=== PATIENT | male | born 1950 ===

== ENCOUNTER 2020-10-02 11:21 | Day surgery (SDC) | payer OTHER ==
[2020-10-03] MEDS ORDERED: ATOR10 PO (14:17)
[2020-10-03] MEDS ORDERED: AMLO5 PO (14:17)
[2020-10-03] MEDS ORDERED: Lisinopril-Hct1 EAC4 PO (14:17)
[2020-10-03] MEDS ORDERED: ASPIR 8181 M1 PO (14:18)
[2020-10-03] MEDS ORDERED: METF500 PO (14:18)
== END 2020-10-02 23:14 | disposition home or self-care (01) ==
LOC: ATC 11:21
DX: U07.1 COVID-19 (principal); J12.82 Pneumonia due to coronavirus disease 2019; E11.9 Type 2 diabetes mellitus without complications
CPT/HCPCS: 96365; Q0243

== ENCOUNTER 2020-10-03 10:09 | Inpatient (IN) | payer OTHER, MEDICARE ==
[~2020-10-03] VITALS: Ht 177.8 cm; Wt 93.7 kg
[2020-10-03 10:56] LABS: BASOPHILS ABSOLUTE AUTO 0.02 K/mm3 (0.00-0.23); BASOPHILS PERCENT AUTO 0 % (0-2); EOSINOPHILS PERCENT AUTO 0 % (0-6); Hematocrit 39.9 % (37.0-53.0); Hemoglobin 13.4 g/dL (13.5-17.5); IMMATURE GRAN PERCENT AUTO 1 % (0-1); LYMPHOCYTES ABSOLUTE AUTO 0.65 K/mm3 (0.84-5.20); LYMPHOCYTES PERCENT AUTO 5 % (21-46); MONOCYTES ABSOLUTE AUTO 0.88 K/mm3 (0.16-1.47); MONOCYTES PERCENT AUTO 6 % (4-13); Mean Corpuscular HGB 28.9 pg (26.0-34.0); Mean Corpuscular HGB Conc 33.6 g/dL (31.5-36.5); Mean Corpuscular Volume 86 fL (80-100); Mean Platelet Volume 9.3 fL (9.1-12.4); NEUTROPHILS ABSOLUTE AUTO 12.06 K/mm3 (1.96-9.15); NEUTROPHILS PERCENT AUTO 88 % (41-73); Platelet Count 310 K/mm3 (150-400); RDW Coefficient Variation 12.9 % (11.7-14.2); RDW Standard Deviation 40.9 fL (35.1-46.3); Red Blood Cell Count 4.63 M/mm3 (4.30-5.90); White Blood Cell Count 13.71 K/mm3 (4.00-11.30)
[2020-10-03 11:00] LABS: PCO2 Arterial 27 mmHg (35-45); PO2 Arterial 57 mmHg (80-100); pH Blood Arterial 7.49 (7.35-7.45)
[2020-10-03 11:43] LABS: Lactate Dehydrogenase (Ld),Bld 604 U/L (100-240)
[2020-10-03 12:01] LABS: Alanine Aminotransfer (ALT/SGP 52 U/L (12-78); Albumin, Blood 3.1 g/dL (3.4-5.0); Albumin/Globulin Ratio 0.7 (0.8-1.8); Alk Phos 88 U/L (50-136); Anion Gap 13 mmol/L (6-16); Aspartate Aminotrans (AST/SGOT 52 U/L (12-37); Bilirubin, Total 1.1 mg/dL (0.1-1.0); Blood Urea Nitrogen 33 mg/dL (8-24); CO2, Blood 21 mmol/L (21-32); Calcium, Blood 8.9 mg/dL (8.5-10.1); Chloride, Blood 102 mmol/L (98-108); Globulin, Blood 4.7 g/dL (2.2-4.0); Glomerular Filtration Rate >60 (60-); Glucose, Blood 245 mg/dL (70-99); Magnesium, Blood 2.3 mg/dL (1.6-2.4); Potassium, Blood 3.8 mmol/L (3.5-5.5); Sodium, Blood 136 mmol/L (136-145); Total Protein, Blood 7.8 g/dL (6.4-8.2)
[2020-10-03 12:04] LABS: Ferritin, Serum 2528 ng/mL (26-388)
[2020-10-03 12:20] LABS: Troponin I 0.828 ng/mL (0.000-0.040)
[2020-10-03] MEDS ORDERED: Lisinopril-Hct1 EAC4 PO (14:17)
[2020-10-03] MEDS ORDERED: ATOR10 PO (14:17)
[2020-10-03] MEDS ORDERED: AMLO5 PO (14:17)
[2020-10-03] MEDS ORDERED: ASPIR 8181 M1 PO (14:18)
[2020-10-03] MEDS ORDERED: METF500 PO (14:18)
--- NOTE | 2020-10-03 16:06 | NUR ---
PT ARRIVED FROM ED VIA GURNEY, TRANSFERED TO BED BY NURSING STAFF. PT A/O X 4, DENIES PAIN/DISCOMFORT/NAUSEA AT THIS TIME. PT DENIES CHEST PAIN/DISCOMFORT. PT IS ABLET TO STAND AT BEDSIDE AND VOID IN URINAL. BIPAP IN PLACE, O2 SATURATION MAINTAINING >90%. NO SIGNS OF ACUTE DISTRESS, WCTM.
[2020-10-03 16:21] LABS: PCO2 Arterial 30.1 mmHg (35-45); PO2 Arterial 53.7 mmHg (80-100); pH Blood Arterial 7.48 (7.35-7.45)
--- NOTE | 2020-10-03 17:57 | NUR ---
NO CHANGES SINCE ARRIVAL TO UNIT, PATIENT DENIES NEEDS AT THIS TIME. WCTM.
[2020-10-04 03:39] LABS: BASOPHILS ABSOLUTE AUTO 0.02 K/mm3 (0.00-0.23); BASOPHILS PERCENT AUTO 0 % (0-2); EOSINOPHILS PERCENT AUTO 0 % (0-6); Hematocrit 36.8 % (37.0-53.0); Hemoglobin 12.3 g/dL (13.5-17.5); IMMATURE GRAN ABSOLUTE AUTO 0.09 K/mm3 (0.00-0.10); IMMATURE GRAN PERCENT AUTO 1 % (0-1); LYMPHOCYTES ABSOLUTE AUTO 0.77 K/mm3 (0.84-5.20); LYMPHOCYTES PERCENT AUTO 6 % (21-46); MONOCYTES ABSOLUTE AUTO 0.86 K/mm3 (0.16-1.47); MONOCYTES PERCENT AUTO 7 % (4-13); Mean Corpuscular HGB 29.7 pg (26.0-34.0); Mean Corpuscular HGB Conc 33.4 g/dL (31.5-36.5); Mean Corpuscular Volume 89 fL (80-100); Mean Platelet Volume 9.4 fL (9.1-12.4); NEUTROPHILS ABSOLUTE AUTO 10.64 K/mm3 (1.96-9.15); NEUTROPHILS PERCENT AUTO 86 % (41-73); Platelet Count 320 K/mm3 (150-400); RDW Coefficient Variation 12.7 % (11.7-14.2); RDW Standard Deviation 41.9 fL (35.1-46.3); Red Blood Cell Count 4.14 M/mm3 (4.30-5.90); White Blood Cell Count 12.38 K/mm3 (4.00-11.30)
[2020-10-04 03:57] LABS: Alanine Aminotransfer (ALT/SGP 50 U/L (12-78); Albumin, Blood 2.7 g/dL (3.4-5.0); Albumin/Globulin Ratio 0.6 (0.8-1.8); Alk Phos 79 U/L (50-136); Anion Gap 8 mmol/L (6-16); Aspartate Aminotrans (AST/SGOT 44 U/L (12-37); Bilirubin, Total 0.5 mg/dL (0.1-1.0); Blood Urea Nitrogen 37 mg/dL (8-24); CO2, Blood 24 mmol/L (21-32); Calcium, Blood 8.3 mg/dL (8.5-10.1); Chloride, Blood 108 mmol/L (98-108); Globulin, Blood 4.6 g/dL (2.2-4.0); Glomerular Filtration Rate >60 (60-); Glucose, Blood 301 mg/dL (70-99); Magnesium, Blood 2.9 mg/dL (1.6-2.4); Potassium, Blood 3.8 mmol/L (3.5-5.5); Sodium, Blood 140 mmol/L (136-145); Total Protein, Blood 7.3 g/dL (6.4-8.2)
--- NOTE | 2020-10-04 05:14 | NUR ---
SHIFT SUMMARY PT A&O X4. SP02>90% ON BIPAP 80%-100% FI02, RR 30'S. PT STARTED THE SHIFT AT 80% FI02. WHILE SLEEPING, PT DESATTED TO 84%. RT IN ROOM, INCREASED FI02 TO 100%. 02 LEVEL RECOVERED, DECREASED FI02 TO 90%. PT CURRENTLY SATTING 92%. ORAL CARE DONE Q4H. PT NSR, HR 40'S-60'S. PT STOOD AT BEDSIDE TO USE URINAL X3 DURING SHIFT. NO BM. FULIDS INFUSED PER EMAR. PT REMAINED NPO PER ORDERS. PT SLEPT MOST OF NIGHT. CALL LIGHT IN REACH. WILL GIVE REPORT TO ONCOMING NURSE.
[2020-10-04 05:20] LABS: pH Blood Arterial 7.43 (7.35-7.45)
[2020-10-04 05:21] LABS: PCO2 Arterial 33.5 mmHg (35-45); PO2 Arterial 73.9 mmHg (80-100)
--- NOTE | 2020-10-04 08:00 | NUR ---
ASSUMED PT CARE REPORT FROM HANH CROUCH AT 0655. PT SLEEPING AT THIS TIME. ASSESSMENT COMPLETE AT 0800. PT ALERT AND ORIENTED. FOLLOWS COMMANDS AND PARTICIPATES IN CARE. PT HAS BIPAP MASK ON, REMOVED FOR ORAL CARE AND RETURNED. PT DENIES PAIN, ABLE TO TALK ON PHONE WITH FAMILY THROUGH BIPAP MASK. SKIN INTACT. LUNG SOUNDS DIMINISHED/COARSE. SATS >92% CURRENTLY ON 13/6 80% FIO2. PT TACHYPNEIC. PT IN SINUS SHREYA. PT HAS A 20G TO RIGHT HAND, SL, SITE WNL, DRESSING C/D/I. IV TO RIGHT AC INFILTRATED, REMOVED, DRESSING PLACED. NEW 18G TO LEFT WRIST PLACED, FLUSHES WELL. PT ASKING FOR WATER, EXPLAINED NPO STATUS. WILL DISCUSS SWITCHING PT FROM BIPAP TO AIRVO WITH PROVIDER AND RESP THERAPIST. CALL LIGHT IN REACH. SEE FULL SHIFT ASSESSMENT.
--- NOTE | 2020-10-04 10:00 | NUR ---
PT SWITCHED TO AIRVO 50L/90% BY SATINDER BARNETT. PT TOLERATING WELL. ABLE TO DRINK WATER WITHOUT CHOKING. WILL CONTINUE TO MONITOR.
--- NOTE | 2020-10-04 13:45 | NUR ---
DR LION TO ROOM FOR ROUNDS.
--- NOTE | 2020-10-04 14:15 | NUR ---
PT PLACED BACK ON BIPAP.
--- NOTE | 2020-10-04 18:10 | NUR ---
PT TO IMAGING WITH THIS RN, RESP THERAPIST AND CONSUMER ANALYST. PT ON TRANSPORT MONITOR.
--- NOTE | 2020-10-04 18:40 | NUR ---
PT RETURNED FROM IMAGING.
--- NOTE | 2020-10-04 18:45 | NUR ---
SHIFT SUMMARY PT REMAINS ALERT AND ORIENTED. DENIES PAIN. ABLE TO REPOSITION INDEPENDENTLY AND SIT ON BEDSIDE TO USE URINAL. PT ON CLEAR LIQUIDS WHEN ON AIRVO (PT TOLERATED AIRVO FOR A FEW HRS TODAY). PT CURRENTLY ON BIPAP 13/6/70%, SATS >92%. SBP WNL. PT SINUS SHREYA MOST OF DAY. ABD SOFT. LUNG SOUNDS DIMINISHED. UPDATE MADE TO THIS AM. PLAN TO POTENTIALLY MOVE TO PCU IF ABLE TO BE OFF BIPAP. WILL CONTINUE TO MONITOR. WILL REPORT TO ONCOMING NURSE.
--- NOTE | 2020-10-04 19:00 | NUR ---
ASSUMED CARE OF PATIENT. REPORT RECEIVED. PT IS MAINTAINING 02 SAT AT 96% ON BIPAP 13/6 WITH FIO2 70%. HE APPEARS COMFORTABLE AND CALM WITH BIPAP MASK ON AND DENIES PAIN OR DISCOMFORT. PT IS TACHYPNEIC WITH INCREASED CARREON AND SHALLOW BREATHING. WILL CONTINUE TO MONITOR.
--- NOTE | 2020-10-04 21:00 | NUR ---
PT'S IS UPDATED BY PHONE. SHE WILL CHECK IN WITH THE DAYSHIFT RN ABOUT VISITING.
--- NOTE | 2020-10-05 01:20 | NUR ---
REPORT TO MIKO DIAZ
--- NOTE | 2020-10-05 03:14 | NUR ---
ASSUMED CARE OF PATIENT @0130. PATIENT IS ALERT AND ORIENTED X4, PLEASANT AND COOPERATIVE WITH CARE. BIPAP 11/08 FI02 70%. 02 SATS 94%. SB @30s-40s. BP STABLE. REPOSITIONS SELF IN BED. USES URINAL. CALL LIGHT IN REACH.
--- NOTE | 2020-10-05 07:05 | NUR ---
PATIENT SLEPT MOST THE NIGHT. A&O STILL, COPPERATIVE WITH CARE. 02 SATS 94% ON BIPAP 11/08 FI02 70%. DENIES CP/SOB. SHREYA CARDIC IN THE 30-40s. CALL LIGHT IN REACH.
--- NOTE | 2020-10-05 07:07 | NUR ---
UPDATED ON PT CONDITION
[2020-10-05 07:24] LABS: BASOPHILS ABSOLUTE AUTO 0.02 K/mm3 (0.00-0.23); BASOPHILS PERCENT AUTO 0 % (0-2); EOSINOPHILS PERCENT AUTO 0 % (0-6); Hematocrit 36.8 % (37.0-53.0); Hemoglobin 12.1 g/dL (13.5-17.5); IMMATURE GRAN ABSOLUTE AUTO 0.14 K/mm3 (0.00-0.10); IMMATURE GRAN PERCENT AUTO 1 % (0-1); LYMPHOCYTES ABSOLUTE AUTO 0.68 K/mm3 (0.84-5.20); LYMPHOCYTES PERCENT AUTO 4 % (21-46); MONOCYTES ABSOLUTE AUTO 0.95 K/mm3 (0.16-1.47); MONOCYTES PERCENT AUTO 6 % (4-13); Mean Corpuscular HGB 29.4 pg (26.0-34.0); Mean Corpuscular HGB Conc 32.9 g/dL (31.5-36.5); Mean Corpuscular Volume 90 fL (80-100); Mean Platelet Volume 9.8 fL (9.1-12.4); NEUTROPHILS ABSOLUTE AUTO 14.15 K/mm3 (1.96-9.15); NEUTROPHILS PERCENT AUTO 89 % (41-73); Platelet Count 353 K/mm3 (150-400); RDW Coefficient Variation 12.7 % (11.7-14.2); RDW Standard Deviation 41.7 fL (35.1-46.3); Red Blood Cell Count 4.11 M/mm3 (4.30-5.90); White Blood Cell Count 15.94 K/mm3 (4.00-11.30)
--- NOTE | 2020-10-05 07:30 | NUR ---
ASSUMED PT CARE REPORT AND ROUNDS WITH EMILY CROUCH AT 0655. ASSUMED PT CARE. ASSESSMENT COMPLETE AT 0730. PT ALERT AND ORIENTED. DENIES PAIN. PT ON BIPAP 13/6/70%, SATS >92%. PT STILL TACHYPNEAIC AT TIMES. NO COUGH. LUNG SOUNDS CLEAR TO UPPER LOBES, DIMINISHED TO LOWER. ABD SOFT, DISTENDED. PT DENIES ABD PAIN/NAUSEA. SBP 121, PULSES STRONG AND EQUAL. PT HAD MULTIPLE EPISODES OF BRADYCARDIA DURING NOC SHIFT, LABS PENDING, EKG COMPLETE. WILL DISCUSS WITH HOSPITALIST DURING ROUNDS. PT VOIDS PER URINAL. NO BM LATELY. PT MOVES INDEPENDENTLY AND ABLE TO REPOSITION. SEE FULL SHIFT ASSESSMENT.
[2020-10-05 07:45] LABS: Alanine Aminotransfer (ALT/SGP 55 U/L (12-78); Albumin, Blood 2.7 g/dL (3.4-5.0); Albumin/Globulin Ratio 0.6 (0.8-1.8); Alk Phos 79 U/L (50-136); Anion Gap 6 mmol/L (6-16); Aspartate Aminotrans (AST/SGOT 38 U/L (12-37); Bilirubin, Total 0.5 mg/dL (0.1-1.0); Blood Urea Nitrogen 49 mg/dL (8-24); Bun/Creatinine Ratio 62.8 (12.0-20.0); CO2, Blood 24 mmol/L (21-32); Calcium, Blood 8.4 mg/dL (8.5-10.1); Chloride, Blood 110 mmol/L (98-108); Creatinine, Blood 0.78 mg/dL (0.60-1.20); Globulin, Blood 4.4 g/dL (2.2-4.0); Glomerular Filtration Rate >60 (60-); Glucose, Blood 237 mg/dL (70-99); Potassium, Blood 3.8 mmol/L (3.5-5.5); Sodium, Blood 140 mmol/L (136-145); Total Protein, Blood 7.1 g/dL (6.4-8.2); Troponin I 0.355 ng/mL (0.000-0.040)
--- NOTE | 2020-10-05 09:00 | NUR ---
DR LION TO ROOM FOR ROUNDS. AWARE OF LAB RESULTS, EKG REVIEWED. STATES THAT IF BRADYCARDIA PERSISTS POSS PACEMAKER MIGHT BE INDICATED. PT UNDERSTANDS.
--- NOTE | 2020-10-05 18:45 | NUR ---
SHIFT SUMMARY PT REMAINS ALERT AND ORIENTED AND PLEASANT. CURRENTLY ON AIRVO 50L/80%, SATS >92%. LUNG SOUNDS CLEAR TO UPPER, DIMINISHED TO BASES. SBP WNL. HR SINUS SHREYA WITH PACS. ABD SOFT AND NONTENDER. SMALL BM TODAY. VOIDING PER URINAL. PT REQUESTING THAT HOME MEDS BE RESUMED (SPECIFICALLY HCTZ). WILL DISCUSS WITH ONCOMING SHIFT. PT TOLERATING LIQUIDS. VISITED TODAY WHICH PT REALLY APPRECIATED. PT MOVING AROUND WELL, DESATS WITH ACTIVITY BUT IS ABLE TO RECOVER QUICKLY. WILL REPORT TO ONCOMING SHIFT.
[2020-10-06 03:25] LABS: Base Excess Venous -0.6 mmol/L; Bicarbonate Venous 23.9 mmol/L (24.0-30.0); PCO2 Venous 39.2 mmHg (38-42); PO2 Venous 79.7 mmHg (38-42)
[2020-10-06 03:35] LABS: BASOPHILS ABSOLUTE AUTO 0.02 K/mm3 (0.00-0.23); BASOPHILS PERCENT AUTO 0 % (0-2); EOSINOPHILS PERCENT AUTO 0 % (0-6); Hemoglobin 11.3 g/dL (13.5-17.5); IMMATURE GRAN ABSOLUTE AUTO 0.12 K/mm3 (0.00-0.10); IMMATURE GRAN PERCENT AUTO 1 % (0-1); LYMPHOCYTES ABSOLUTE AUTO 0.54 K/mm3 (0.84-5.20); LYMPHOCYTES PERCENT AUTO 4 % (21-46); MONOCYTES ABSOLUTE AUTO 0.99 K/mm3 (0.16-1.47); MONOCYTES PERCENT AUTO 7 % (4-13); Mean Corpuscular HGB 29.5 pg (26.0-34.0); Mean Corpuscular HGB Conc 33.2 g/dL (31.5-36.5); Mean Corpuscular Volume 89 fL (80-100); Mean Platelet Volume 9.8 fL (9.1-12.4); NEUTROPHILS ABSOLUTE AUTO 11.69 K/mm3 (1.96-9.15); NEUTROPHILS PERCENT AUTO 88 % (41-73); Platelet Count 352 K/mm3 (150-400); RDW Coefficient Variation 12.4 % (11.7-14.2); RDW Standard Deviation 40.5 fL (35.1-46.3); Red Blood Cell Count 3.83 M/mm3 (4.30-5.90); White Blood Cell Count 13.36 K/mm3 (4.00-11.30)
[2020-10-06 03:51] LABS: Anion Gap 5 mmol/L (6-16); Blood Urea Nitrogen 38 mg/dL (8-24); Bun/Creatinine Ratio 45.2 (12.0-20.0); CO2, Blood 25 mmol/L (21-32); Calcium, Blood 8.3 mg/dL (8.5-10.1); Chloride, Blood 110 mmol/L (98-108); Creatinine, Blood 0.84 mg/dL (0.60-1.20); Glomerular Filtration Rate >60 (60-); Glucose, Blood 215 mg/dL (70-99); Sodium, Blood 140 mmol/L (136-145)
--- NOTE | 2020-10-06 06:45 | NUR ---
SHIFT SUMMARY PATIENT FOUND TO BE A PLEASANT MAN WHO IS A&OX4 WITH SOME GEN WEAKNESS. VSS. SB IN THE 40'S-60'S ALL SHIFT. WAS PUT ON BIPAP FOR SLEEP WITH 13/6 SETTINGS. SATING MID 90'S ALL NIGHT ON THIS. UPON AWAKING THIS AM PATIENT REQUESTED AIRVO AND HAD TO TURN UP SETTINGS FROM YESTERDAY NOW 55L, 90% SATING MID 90'S. NO PAIN OR DISTRESS NOTED UPON ASSESSMENT. TOLERATING CLD AND ADVANCED TO FULL LIQUID TODAY. VOIDING WELL PER URINAL. SUGAR CHECKS CONTINUE Q6 AND TREATED PER EMAR. NO ACUTE CONCERNS AT THIS TIME. WILL CONTINUE TO MONITOR UNTIL REPORT GIVEN TO YARA RN.
--- NOTE | 2020-10-06 07:15 | NUR ---
ASSUMED CARE AT 0700, REPORT FROM MIKO REILLY. AIR VO 55L 90%. SHORTLY AFTER ASSUMING CARE, PT ASKS FOR CPAP. RT TO ROOM. CPAP STARTED BY RT. 02 SAT 95%. WILL CONTINUE TO MONITOR AND TREAT.
--- NOTE | 2020-10-06 17:53 | NUR ---
SHIFT SUMMARY; A/A/OX4 THROUGHOUT SHIFT. SAT AT BEDSIDE IN CHAIR MOST OF DAY. AIR VO 85% 60L TO MAINTAIN SATS OF 88-92%. DYSPNEA WITH EXERTION. IMPROVED APPETITE TODAY, DIET ADVANCED FOR ADA DIET. SPOUSE AT BEDSIDE IN AFTERNOON. BED BATH COMPLETE TODAY AND ORAL CARE. VSS, WILL CONTINUE TO MONITOR UNTIL CHANGE OF SHIFT.
--- NOTE | 2020-10-06 22:45 | NUR ---
PATIENT IS ALERT AND ORIENTED X4. 02 SATS 94% ON AIRVO 60L 85% WHILE AWAKE, PATIENT SWITCHED TO CPAP [id number] 13 FI02 80 WHILE ASLEEP TO MAINTAIN SATS. SB IN THE 40s-50s. SBA TO BSC AND USES URINAL AT BEDSIDE. REPOSITIONS SELF. VSS. CALL LIGHT IN REACH.
--- NOTE | 2020-10-07 06:20 | NUR ---
PATIENT ALERT AND ORIENTED STILL. CPAP 13 60% WHILE SLEEPING 02 SATS >90%. SB 40s-50s. ABLE TO STAND AT BEDSIDE TO USE URINAL. SLEPT MOST THE NIGHT. VSS, NO ACUTE CHANGES. CALL LIGHT IN REACH.
--- NOTE | 2020-10-07 08:29 | NUR ---
ASSUMED CARE: REPORT RECEIVED FROM EMILY Mueller RN. ASSUMED CARE OF THIS PT AT APPROX 0700. ON ASSESSMENT, THE PT IS AWAKE, ALERT & ORIENTED TO ALL. HE DENIES ANY PAIN & STS HIS BREATHING FEELS "A LITTLE BETTER" THAN AT TIME OF ADMISSION. PT USING CPAP 13 & 60% FIO2, SWITCHED TO AIRVO W/ SETTINGS: 60 L/MIN & 60% FIO2 & TOLERATING WELL W/ O2 SATS > 92% ON AVG. LS DIM T/O. MONITOR SHOWS SB-SR W/ HR 40-60s, BP STABLE. PT DENIES GI COMPLAINTS & IS TOLERATING PO INTAKE WELL THIS AM. VOIDS W/O DIFFICULTY USING URINAL AT BEDSIDE. SKIN CONDITION OVERALL CDI & PT IS ABLE TO REPOSITION SELF IN BED FOR COMFORT. WILL CONTINUE TO MONITOR & UPDATE NEEDED.
--- NOTE | 2020-10-07 09:30 | NUR ---
DR SAMSON: PROVIDER AT BEDSIDE TO EVAL PT. ORDERS FOR PCU STATUS PLACED. NO OTHER CHANGES AT THIS TIME.
--- NOTE | 2020-10-07 17:49 | NUR ---
SHIFT SUMMARY: NO ACUTE CHANGES SINCE PRIOR UPDATES. PT REMAINS A&O, PLEASANT & COOPERATIVE. HIS HAS BEEN AT BEDSIDE THIS AFTERNOON & IS HELPFUL W/ CARE. LS DIM, PT ON AIRVO THIS AFTERNOON W/ SETTINGS: 60 L/MIN & 80% FIO2, INCREASED FOR DESATS TO 86% WHILE THE PT CONVERSES W/ HIS . MONITOR SHOWS SB-SR W/ HR 40-60s, BP STABLE. PT HAS NO GI COMPLAINTS & HAS TOLERATED PO INTAKE WELL TODAY. VOIDS W/O DIFFICULTY USING URINAL. SKIN CONDITION OVERALL CDI & PT HAS REPOSITIONED SELF APPROX Q2H T/O SHIFT. WILL CONTINUE TO MONITOR & REPORT OFF TO ONCOMING RN.
--- NOTE | 2020-10-07 20:07 | NUR ---
RECEIVED REPORT FROM MIKO POSADA. PT UP TO THE BSC, BLOOD PRESSURE ALARM GOING OFF. HE DENIES ANY NEEDS AT THIS TIME. HE IS WEARING HIS CPAP, PRESSURE 13. HEART RATE SB, IN THE 50S.
--- NOTE | 2020-10-07 21:37 | NUR ---
PT WAS STRUGGLING WITH HIS MASK LEAKING, HE WAS HOLDING IT TO HIS FACE. GENE CAME IN AND SWITCHED HIS MASK AND IT IS DOING MUCH BETTER. HIS LUNGS ARE CLEAR BUT DIMINISHED, BREATHING IS TACHYPNEIC, SLIGHTLY LABORED, ABDOMEN IS SOFT NON TENDER, VOIDING WELL, UP TO BSC ON HIS OWN REPORTED EARLIER. PT IS PLEAS- ANT AND COOPERATIVE AND DENIES ANY COMPLAINTS AT THIS TIME. USING THE CPAP AT 13. SATS >95%.
--- NOTE | 2020-10-08 05:12 | NUR ---
GEOFF HAS BEEN SLEEPING WELL, HE HAS BEEN ON HIS SIDE, HIS BACK AND HIS OTHER SIDE. HE AWOKE TO VOID VIA THE URINAL, SATS DROPPED A BIT WITH THE MOVEMENT BUT RETURNED TO MID 90'S WHEN HE WAS FINISHED MOVING ABOUT. HE HAS TOLERATED THE CPAP WELL.
--- NOTE | 2020-10-08 08:00 | NUR ---
ASSUMED CARE PT ALERT AND AWAKE. O2 SATS REMAIN ABOVE 90% ON CPAP 13. PT SWITCHED TO AIRVO WITH 60L AND 60% FIO2. HR SINUS SHREYA 50'S. PT ASYMPTOMATIC WITH BRADYCARDIA. BP STABLE. PT DENIES ANY PAIN. PT ABLE TO SIT UP AT EDGE OF BED FOR BREAKFAST. PT DOES DESATURATE WITH ANY ACITVIY, BUT RECOVERS WITHIN MINUTES. PT ABLE TO STAND AND TRANSFER TO BSC WITH MINIMAL ASSISTANCE. WILL CONTINUE TO MONITOR CLOSELY.
--- NOTE | 2020-10-08 17:18 | NUR ---
SHIFT SUMMARY PT ALERT AND ORIENTED. PT HAS BEEN ON AIRVO AT 60L AND 75% FIO2 ALMOST ALL SHIFT. PT DID USE CPAP AT 13 FOR ABOUT 2 HOURS WHILE SLEEPING. PT DESATURATES WITH MINIMAL ACITIVY, BUT RECOVERS WITHIN MINUTES. BP HAS BEEN STABLE. HR HAS BEEN SB AT 40-50. AT BEDSIDE. WILL CONTINUE TO MONITOR CLOSELY AND REPORT TO ONCOMING RN
--- NOTE | 2020-10-08 19:15 | NUR ---
REPORT RECEIVED-CARE ASSUMED
--- NOTE | 2020-10-08 20:30 | NUR ---
ASSESS ASSESSMENT AND VITALS DONE-SEE FLOWSHEET
--- NOTE | 2020-10-09 00:13 | NUR ---
ASSESS PT RESTING ON CPAP13/50%. HR REMAINS SB 35-55, ASYMPTOMATIC. PT DESATS 85% WITH MOVING AND TURNS. PT CURRENTLY ON LEFT SIDE-ABLE TO REPOSITION SELF. CONTINUE ASSESSMENTS AND CARE.
--- NOTE | 2020-10-09 01:31 | NUR ---
CALLED-UPDATE GIVEN
--- NOTE | 2020-10-09 06:32 | NUR ---
END OF SHIFT PT REMAINED ON CPAP 13, 50% OVERNIGHT. HR SB [id number]. PIV'S S.L. PT UP TO VOID INDEPENDENTLY. CONTINUE ASSESSMENTS AND CARE TILL REPORT OFF TO ONCOMING SHIFT RN.
--- NOTE | 2020-10-09 18:13 | NUR ---
SHIFT SUMMARY NO ACUTE EVENTS THIS SHIFT, VSS. PT IS ALERT AND ORIENTED, CALLS APPROPRIATELY. PT REMAINED ON AIRVO THIS SHIFT, WILL DESATURATE TO HIGH 80S AT TIMES WITH ACTIVITY, RECOVERS QUICKLY. PT WAS UP IN CHAIR FOR ENTIRE SHIFT, ABLE TO USE COMMODE INDEPENDENTLY.
--- NOTE | 2020-10-09 19:22 | NUR ---
REPORT GIVEN TO EMILY CROUCH IN PCU.
--- NOTE | 2020-10-09 20:30 | NUR ---
LEAVING ICU 2 PT TRANSPORTED TO PCU 7 FROM ICU 2 AT 2030 WITH PCT AND RT VIA WHEELCHAIR. ALL BELONGING AND MEDICATIONS SENT WITH HIM.
--- NOTE | 2020-10-09 23:56 | NUR ---
REPORT RECIEVED FROM HERMINIO CROUCH, PATIENT TO ROOM @2029 VIA WHEELCHAIR. ALERT AND ORIENTED X4. PM AIRVO 60L 65% 02 SATS >90%. PATIENT INDEPENDENT TO BSC AND WITH REPOSITIONING. SB @ 40s-50s. CALL LIGHT IN REACH.
--- NOTE | 2020-10-10 04:51 | NUR ---
SHIFT SUMMARY PATIENT ALERT AND ORIENTED X4. 02 SATS 95% ON AIRVO @60L 65%, AND 91% ON CPAP WHILE SLEEPING 13, 65%. SB @30s-50s. INDEPENDENT TO BSC AND WITH REPOSITIONING. SOB WITH ACTIVITY. UPDATED ON PATIENT CONDITION. PATIENT SLEPT MOST THE NIGHT. TEACHING PROVIDED ABOUT OXYGEN REQUIREMENTS. VSS, NO ACUTE CHANGES. CALL LIGHT IN REACH.
--- NOTE | 2020-10-10 17:56 | NUR ---
SHIFT SUMMARY PT ALERT AND ORIENTED X 4. UP IN CHAIR T/O SHIFT. BP STABLE. HR STABLE. NO CP OR PRESSURE REPORTED. OXYGEN SATURATION MAINTAINED ABOVE 90% ON AIRVO AT 60 L ABD 70% FIO2. PT DESATS QUICKLY WITH ACTIVITY. ENCOURAGED PT TO DEEP BREATH AND COUGH. PT IND TO COMMODE. WILL CONT TO MONITOR UNTIL REPORT GIVEN TO NIGHTSHIFT RN.
[2020-10-11 04:20] LABS: BASOPHILS ABSOLUTE AUTO 0.05 K/mm3 (0.00-0.23); BASOPHILS PERCENT AUTO 0 % (0-2); EOSINOPHILS ABSOLUTE AUTO 0.25 K/mm3 (0.00-0.68); EOSINOPHILS PERCENT AUTO 2 % (0-6); Hematocrit 39.2 % (37.0-53.0); Hemoglobin 12.9 g/dL (13.5-17.5); IMMATURE GRAN ABSOLUTE AUTO 0.74 K/mm3 (0.00-0.10); IMMATURE GRAN PERCENT AUTO 5 % (0-1); LYMPHOCYTES ABSOLUTE AUTO 0.86 K/mm3 (0.84-5.20); LYMPHOCYTES PERCENT AUTO 6 % (21-46); MONOCYTES ABSOLUTE AUTO 1.53 K/mm3 (0.16-1.47); MONOCYTES PERCENT AUTO 10 % (4-13); Mean Corpuscular HGB Conc 32.9 g/dL (31.5-36.5); Mean Corpuscular Volume 88 fL (80-100); Mean Platelet Volume 9.5 fL (9.1-12.4); NEUTROPHILS ABSOLUTE AUTO 11.98 K/mm3 (1.96-9.15); NEUTROPHILS PERCENT AUTO 78 % (41-73); Platelet Count 304 K/mm3 (150-400); RDW Coefficient Variation 12.4 % (11.7-14.2); RDW Standard Deviation 39.8 fL (35.1-46.3); Red Blood Cell Count 4.45 M/mm3 (4.30-5.90); White Blood Cell Count 15.41 K/mm3 (4.00-11.30)
[2020-10-11 04:36] LABS: Albumin, Blood 2.3 g/dL (3.4-5.0); Anion Gap 3 mmol/L (6-16); Blood Urea Nitrogen 25 mg/dL (8-24); Bun/Creatinine Ratio 28.2 (12.0-20.0); CO2, Blood 30 mmol/L (21-32); Calcium, Blood 8.3 mg/dL (8.5-10.1); Chloride, Blood 105 mmol/L (98-108); Creatinine, Blood 0.89 mg/dL (0.60-1.20); Glomerular Filtration Rate >60 (60-); Glucose, Blood 160 mg/dL (70-99); Magnesium, Blood 2.4 mg/dL (1.6-2.4); Phosphorus, Blood 4.6 mg/dL (2.5-4.9); Potassium, Blood 4.4 mmol/L (3.5-5.5); Sodium, Blood 138 mmol/L (136-145)
--- NOTE | 2020-10-11 04:58 | NUR ---
SHIFT SUMMARY PATIENT IS ALERT AND ORIENTED X4. 02 SATS >95% ON AIRVO @60L FIO2 65%, CPAP WHILE SLEEPING 13 70%. SB 30s-50s. BP STABLE. PATIENT UP TO BEDSIDE COMMODE INDEPENDENTLY. VSS, NO ACUTE CHANGES. CALL LIGHT IN REACH.
--- NOTE | 2020-10-11 10:49 | NUR ---
ALERT AND ORIENTED. NEURO WNL. ON AIRVO AT 60L AND 70% SATING LOW 90'S. WITH ANYMOVEMENT AND TALKING ON PHONE PATIENT DESATS TO LOW 80'S. ABLE TO RECOVER IN 3 MIN. LUNGS SOUNDING DIMINISHED. TELE SHOWING SINUS SHREYA WITH HR 40-50'S. DENIES CHEST PAIN/PRESSURE. VITAL SIGNS STABLE. BOWEL TONES PRESENT. DENIES NAUSEA. USING BSC AND URINAL. INDEPENDENT TO BSC. ACHS BLOOD SUGARS. SKIN - SCATTERED BRUISING. SCAB TO BRIDGE OF NOSE, PER PATIENT FROM CPAP MASK. WEARING CPAP NOC. EATING WELL. CALL LIGHT IN REACH. DENIES NEEDS AT THIS TIME. WILL CONTINUE TO MONITOR.
--- NOTE | 2020-10-11 18:23 | NUR ---
SHIFT SUMMARY: NO ACUTE CHANGES. VITAL SIGNS REMAIN STABLE. AIRVO AND TELE REMAIN UNCHANGED. PATIENT EATING WELL. USING BSC INDEPENDENTLY. RESPIRATORY CARE IN TO ASSESS AIRVO THROUGHOUT SHIFT. SEE PREVIOUS NOTES. CALL LIGHT IN REACH. WILL CONTINUE TO MONITOR AND REPORT OFF.
--- NOTE | 2020-10-11 21:15 | NUR ---
ASSUMED CARE PT IS ALERT AND ORIENTED. VITAL SIGNS ARE STABLE WITH SATS OF 97% ON AIRVO 60L/70%FIO2. PT IS LAYING ON SIDE AND WAS EDUCATED ON THE IMPORTANCE OF PRONING. CALL LIGHT IS WITHIN REACH. WILL CONTINUE TO MONITOR.
--- NOTE | 2020-10-12 05:34 | NUR ---
SHIFT SUMMARY PT IS ALERT AND ORIENTED. VITALS ARE STABLE. PT IS ON CPAP 13/70% WHILE SLEEPING AND 60L FIO2 70% WHEN SLEEPING WITH SATS ABOVE 92%. PT IS ABLE TO USE BSC BY HIMSELF AND TOLERATED WELL. CALL LIGHT IS WITHIN REACH.
--- NOTE | 2020-10-12 10:00 | NUR ---
PT ALERT AND ORIENTED. NEURO WNL. DENIES NUMBNESS/TINGLING. ON AIRVO AT 50L AND 55% SATING MID-HIGH 90'S. LUNGS SOUNDING CLEAR AND DIM IN BASES. COMPLAINS OF SOME PAIN WHEN TAKING DEEP BREATHS. DENIES SOB. TELE SHOWING SINUS SHREYA WITH HR 50-60'S. DENIES CHEST PAIN/PRESSURE. VITAL SIGNS STABLE. BOWEL TONES PRESENT. USING BSC INDEPENDENTLY. IN RECLINER AT THIS TIME, TALKING WITH FAMILY ON PHONE. PPP. SKIN C/D/I. SCAB ON BRIDGE OF NOSE FROM CPAP MASK. BRUISING SCATTERED THROUGOUT. IN TO DROP OFF PATIENT CLOTHES. CALL LIGHT IN REACH. WILL CONTINUE TO MONITOR.
--- NOTE | 2020-10-12 12:26 | NUR ---
TITRATED AIRVO, 50L AT 50%. SATS MAINTAINING 93-95%. WILL CONTINUE TO MONITOR. VITAL SIGNS REMAIN STABLE. NO ACUTE CHANGES.
--- NOTE | 2020-10-12 14:03 | NUR ---
RESPIRATORY CARE IN TO SEE PATIENT. PATIENT NOW ON 8L HIGH FLOW NASAL CANNULA SATING LOW-MID 90'S. WILL CONTINUE TO MONITOR TO ASSESS TITRATION.
--- NOTE | 2020-10-12 19:25 | NUR ---
SHIFT SUMMARY: PT STATUS IMPROVING. HIGH FLOW NASAL CANNULA AT 4L AND SATING MARLON-HIGH 90'S. PT ABLE TO SHOWER AFTER DINNER. DENIES NEEDS. SEE PREVIOUS NOTES. REPORTED OFF TO ONCOMING RN.
--- NOTE | 2020-10-13 04:25 | NUR ---
PT'S CALLED AND WOULD LIKE TO TALK TO THE DR REGARDING PT. FRANTZ [phone].
--- NOTE | 2020-10-13 06:35 | NUR ---
SHIFT SUMMARY PT IS ALERT AND ORIENTED. THERE HAVE BEEN NO ACUTE CHANGES T/O THE NIGHT. VITALS ARE STABLE AND PT HAS MAINTAINED ABOVE 92% ON 4L NC. PT HAS BEEN ABLE TO AMBULATE BY SELF TO THE BATHROOM WITH SOME DESATURATIONS BUT IS ABLE TO RECOVER QUICKLY. PT WOULD LIKE A CHEST XRAY BEFORE DISCHARGING TO MAKE SURE HE IS CLEAR. CALLED AND WOULD LIKE TO TALK TO A DOCTOR IF POSSIBLE. CALL LIGHT IS WITHIN REACH.
--- NOTE | 2020-10-13 08:30 | NUR ---
PT ALERT AND ORIENTED X4. ON 4L HIGH FLOW NASAL CANNULA SATING MID-HIGH 90'S. DENIES SOB. LUNGS SOUNDING CLEAR AND DIM IN BASES. TELE SHOWING SINUS SHREYA WITH HR 50-60'S. DENIES CHEST PAIN/PRESSURE. VITAL SIGNS STABLE. BOWEL TONES PRESENT. UP IND TO BATHROOM. EATING WELL. DENIES NEEDS AT THIS TIME. WILL CONTINUE TO MONITOR.
== END 2020-10-13 11:16 | disposition home or self-care (01) | DRG 871 ==
LOC: ER 10:09 → ERHOLD 14:19 → PCU 14:19 → ICUE 14:19 → PCU 10-09 20:49
PROVIDERS: Internal Medicine; Nurse Practitioner Acute Care; Student in an Organized Health Care Education/Training Program; ADMIT Internal Medicine
PROC: 8E0ZXY6 Isolation (ICD-10-PCS; principal; 2020-10-03)
PROC: XW033E5 Introduction of Remdesivir Anti-infective into Peripheral Vein, Percutaneous Approach, New Technology Group 5 (ICD-10-PCS; 2020-10-03)
PROC: 5A09557 Assistance with Respiratory Ventilation, Greater than 96 Consecutive Hours, Continuous Positive Airway Pressure (ICD-10-PCS; 2020-10-03)
PROC: 3E0333Z Introduction of Anti-inflammatory into Peripheral Vein, Percutaneous Approach (ICD-10-PCS; 2020-10-03)
PROC: 3E03329 Introduction of Other Anti-infective into Peripheral Vein, Percutaneous Approach (ICD-10-PCS; 2020-10-03)
DX: A41.89 Other specified sepsis (principal); U07.1 COVID-19; J12.82 Pneumonia due to coronavirus disease 2019; J96.01 Acute respiratory failure with hypoxia; I21.4 Non-ST elevation (NSTEMI) myocardial infarction; E11.9 Type 2 diabetes mellitus without complications; I10 Essential (primary) hypertension; E66.01 Morbid (severe) obesity due to excess calories; R00.1 Bradycardia, unspecified; Z68.30 Body mass index [BMI] 30.0-30.9, adult; R65.20 Severe sepsis without septic shock
CPT/HCPCS: 36415; 36600; 71045; 71260; 80048; 80053; 80069; 82728; 82803; 82947; 83036; 83605; 83615; 83735; 83880; 84145; 84484; 85025; 87040; 93005; 93010; 94660; 94761; 94762; 96361; 96365; 96367; 96375; 99285-25; A9270; J1100; J1650; J1815; J2543; J7030; Q9967